=== PATIENT | male | born 1935 | race Caucasian/White ===

== ENCOUNTER 2020-01-28 09:43 | Inpatient (IN) | payer MEDICARE, OTHER ==
[2020-01-28] MEDS ORDERED: Ondansetron 4 MG/2 ML SDV IVPUSH PRN (15:05)
[2020-01-28] MEDS ORDERED: Ondansetron 4 MG Tab.DIS PO PRN (15:05)
--- NOTE | 2020-01-28 15:29 | PCM.HP ---
H&P History of Present Illness - General Date of Service: 01/28/20 Admit Problem/Dx: Admission Diagnosis/Problem Admission Diagnosis/Problem Hip fracture requiring operative repair Source of Information: Patient, Old Records History Limitations: Reports: No Limitations - History of Present Illness Initial Comments - Free Text/Narative: Patient is an 84-year-old male with medical history significant for hypertension , dyslipidemia, BPH, cancer, allergic rhinitis, and osteoarthritis who was admitted for closed left hip fracture. Patient underwent left total hip arthroplasty. 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 He underwent physical therapy and outpatient therapy and got therapy. They recommended swing bed placement to continue physical therapy due to patient living alone and having stairs to his residence. Today, patient reports that he is doing okay. He reports that his left lower extremity has been more swollen compared to baseline. Ultrasound of the lower extremity was obtained which came back negative. He reports that he was treated to stop taking his nifedipine. He reports intermittent constipation which is at baseline. Last bowel movement was this morning. Denies chest pain , shortness of breath, fevers, chills, nausea, vomiting, diarrhea, hematuria, dysuria, or any new symptoms. Left Hip Pain Score (Numeric/FACES): 2 - Related Data Allergies/Adverse Reactions: Allergies Allergy/AdvReac Type Severity Reaction Status Date / Time No Known Allergies Allergy Verified 01/28/20 15:08 Home Medications: Home Meds Aspirin [Ecotrin EC] 1 tab PO DAILY 07/22/14 [History] Cetirizine [ZyrTEC] 1 tab PO DAILY 07/22/14 [History] Simvastatin [Zocor] 10 mg PO BEDTIME 07/22/14 [History] Terazosin [Hytrin] 1 tab PO BID 07/22/14 [History] allopurinoL [Zyloprim] 1 tab PO DAILY@1730 07/22/14 [History] Cholecalciferol (Vitamin D3) [Vitamin D3] 25 mcg PO DAILY 01/28/20 [History] Enoxaparin Sodium 40 mg SQ DAILY MDD x 10 days from 01/27 post op 01/28/20 [ History] Furosemide 40 mg PO DAILY 01/28/20 [History] Past Medical History HEENT History: Reports: Cataract, Hard of Hearing, Impaired Vision Other HEENT History: bilateral cataracts surgery July 2014,February 2015 Cardiovascular History: Reports: Heart Failure, High Cholesterol, Hypertension Gastrointestinal History: Reports: GI Bleed Other Gastrointestinal History: hx of gi bleed in the . Genitourinary History: Reports: BPH Musculoskeletal History: Reports: None Neurological History: Reports: None Oncologic (Cancer) History: Reports: Other (See Below) Other Oncologic History: hx of skin cancer Dermatologic History: Reports: Other (See Below) Other Dermatologic History: hx of skin cancer, several lesions on lip,face,head all removed - Past Surgical History HEENT Surgical History: Reports: Adenoidectomy, Cataract Surgery, Tonsillectomy GI Surgical History: Reports: Appendectomy Male Surgical History: Reports: None Musculoskeletal Surgical History: Reports: Hip Replacement Dermatological Surgical History: Reports: Other (See Below) Social & Family History - Tobacco Use Smoking Status *Q: Never Smoker Second Hand Smoke Exposure: No - Caffeine Use Caffeine Use: Reports: Coffee Other Caffeine Use: 2 cups per day - Alcohol Use Days Per Week of Alcohol Use: 1 Number of Drinks Per Day: 1 Total Drinks Per Week: 1 - Recreational Drug Use Recreational Drug Use: No H&P Review of Systems - Review of Systems: Review Of Systems: Comprehensive ROS is negative, except as noted in HPI. Exam - Exam Exam: See Below - Vital Signs Weight: 163 lb 8 oz - Exam General: Alert, Oriented, Cooperative HEENT: Conjunctiva Clear, Hearing Intact Neck: Supple, Trachea Midline, Carotid Bruit Lungs: Clear to Auscultation Cardiovascular: Regular Rate, Regular Rhythm, Normal S1, Normal S2 GI/Abdominal Exam: Normal Bowel Sounds, Soft, Non-Tender, No Distention Extremities: Pedal Edema (Left > right), Other (Left hip surgical site, c/d/i) Skin: Warm, Dry, Intact Neuro Extensive - Mental Status: Alert, Oriented x3, Normal Mood/Affect Psychiatric: Alert, Normal Affect, Normal Mood - Problem List (1) Bilateral edema of lower extremity SNOMED Code(s): 007137804, 50777648, 890192614 ICD Code: R60.0 - LOCALIZED EDEMA Status: Acute Current Visit: Yes (2) Fracture of left hip requiring operative repair SNOMED Code(s): 892687129 ICD Code: S72.002A - FRACTURE OF UNSP PART OF NECK OF LEFT FEMUR, INIT Status: Acute Current Visit: Yes (3) Hypertension, essential SNOMED Code(s): 39183316 ICD Code: I10 - ESSENTIAL (PRIMARY) HYPERTENSION Status: Acute Current Visit: Yes (4) Hyperlipidemia SNOMED Code(s): 43671620 ICD Code: E78.5 - HYPERLIPIDEMIA, UNSPECIFIED Status: Acute Current Visit : Yes (5) Vitamin D deficiency SNOMED Code(s): 91955326 ICD Code: E55.9 - VITAMIN D DEFICIENCY, UNSPECIFIED Status: Acute Current Visit: Yes (6) Gout SNOMED Code(s): 31898341 ICD Code: M10.9 - GOUT, UNSPECIFIED Status: Acute Current Visit: Yes Problem List Initiated/Reviewed/Updated: Yes Orders Last 24hrs: Active Orders 24 hr Category Date Time Status Patient Status [ADT] Routine ADT 01/28/20 15:05 Ordered Oxygen Therapy [RC] PRN Care 01/28/20 15:05 Ordered Up With Assistance [RC] ASDIRECTED Care 01/28/20 15:05 Ordered VTE/DVT Education [RC] PER UNIT ROUTINE Care 01/28/20 15:05 Ordered Vital Signs [RC] Q4H Care 01/28/20 15:05 Ordered OT Evaluation and Treatment [CONS] Routine Cons 01/28/20 15:05 Ordered PT Evaluation and Treatment [CONS] Routine Cons 01/28/20 15:05 Ordered 2 Gram Sodium Diet [DIET] Diet 01/28/20 Dinner Ordered BASIC METABOLIC PANEL,BMP [CHEM] AM Lab 01/29/20 05:11 Ordered MAGNESIUM [CHEM] AM Lab 01/29/20 05:11 Ordered Acetaminophen [Tylenol] Med 01/28/20 15:05 Ordered 650 mg PO Q6H PRN Aspirin [Halfprin] Med 01/29/20 09:00 Ordered 81 mg PO DAILY Cetirizine [ZyrTEC] Med 01/29/20 09:00 Ordered 1 tab PO DAILY Cholecalciferol (Vitamin D3) [Vitamin D3] Med 01/29/20 09:00 Ordered 25 mcg PO DAILY Enoxaparin [Lovenox] Med 01/29/20 09:00 Ordered 40 mg SUBCUT DAILY Furosemide [Lasix] Med 01/29/20 09:00 Ordered 40 mg PO DAILY Ondansetron [Zofran ODT] Med 01/28/20 15:05 Ordered 4 mg PO Q6H PRN Ondansetron [Zofran] Med 01/28/20 15:05 Ordered 4 mg IVPUSH Q6H PRN Simvastatin [Zocor] Med 01/28/20 21:00 Ordered 10 mg PO BEDTIME Terazosin [Hytrin] Med 01/28/20 21:00 Ordered 5 mg PO BID allopurinoL [Zyloprim] Med 01/28/20 17:30 Ordered 100 mg PO DAILY@1730 Resuscitation Status Routine Resus Stat 01/28/20 15:05 Ordered Medication Orders Acetaminophen (Tylenol) 650 mg PO Q6H PRN PRN Reason: Pain (Mild 1-3)/fever Allopurinol (Zyloprim) 100 mg PO DAILY@1730 [facility] Aspirin (Halfprin) 81 mg PO DAILY [facility] Cholecalciferol (Vitamin D3) 25 mcg PO DAILY [facility] Enoxaparin Sodium (Lovenox) 40 mg SUBCUT DAILY [facility] Furosemide (Lasix) 40 mg PO DAILY [facility] Non-Formulary Medication (Cetirizine [Zyrtec]) 1 tab PO DAILY [facility] Non-Formulary Medication (Simvastatin [Zocor]) 10 mg PO BEDTIME [facility] Ondansetron HCl (Zofran Odt) 4 mg PO Q6H PRN PRN Reason: nausea, able to take PO Ondansetron HCl (Zofran) 4 mg IVPUSH Q6H PRN PRN Reason: Nausea/Vomiting Terazosin HCl (Hytrin) 5 mg PO BID [facility] Assessment/Plan Comment:: #Left hip fracture status post left CECIL: PT/OT #Lateral lower extremity edema: Likely due to fluid overload from IV fluids and hospital stay. Ultrasound of the lower extremity negative for DVT Nifedipine discontinued Continue oral Lasix Elevate lower extremities when in bed or when seated. #Hypertension: Blood pressures at goal Continue home meds Nifedipine discontinued #Hyperlipidemia Continue statin Vitamin D deficiency Continue vitamin D supplementation #Gout Continue allopurinol DVT prophylaxis: Lovenox GI prophylaxis: Cardiac diet CODE STATUS: DNR/DNI. Patient preference
[2020-01-28] MEDS: Allopurinol 100 MG Tab PO SCH (16:55)
[2020-01-28] MEDS: Simvastatin 10 MG Tab PO SCH (21:12)
[2020-01-28] MEDS: Terazosin 5 MG Cap PO SCH (21:13)
[2020-01-29 06:22] LABS: ANION GAP 8.3 mEq/L (7-13); CHLORIDE,CL 103 mmol/L (98-107); SODIUM,NA 141 mmol/L (136-145)
[2020-01-29] MEDS ORDERED: CETIRIZINE PO SCH (09:00)
[2020-01-29] MEDS: Cholecalciferol (Vitamin D3) 25 MCG Tab PO SCH (09:22)
[2020-01-29] MEDS: Terazosin 5 MG Cap PO SCH ×2 (09:22→20:29)
[2020-01-29] MEDS: Aspirin 81 MG Tab.EC PO SCH (09:22)
[2020-01-29] MEDS: Loratadine 10 MG Tab PO SCH (09:22)
[2020-01-29] MEDS: Enoxaparin 40 MG/0.4 ML Syringe SUBCUT SCH (09:22)
[2020-01-29] MEDS: Furosemide 40 MG Tab PO SCH (09:22)
[2020-01-29] MEDS ORDERED: Potassium Chloride 10 MEQ Tab.ER PO ONE (10:11)
[2020-01-29] MEDS: Allopurinol 100 MG Tab PO SCH (17:43)
[2020-01-29] MEDS: Simvastatin 10 MG Tab PO SCH (20:29)
[2020-01-30] MEDS: Acetaminophen 325 MG Tab PO PRN ×2 (02:03→11:43)
[2020-01-30] MEDS: Terazosin 5 MG Cap PO SCH ×2 (10:26→21:15)
[2020-01-30] MEDS: Cholecalciferol (Vitamin D3) 25 MCG Tab PO SCH (10:27)
[2020-01-30] MEDS: Potassium Chloride 10 MEQ Tab.ER PO SCH (10:27)
[2020-01-30] MEDS: Aspirin 81 MG Tab.EC PO SCH (10:28)
[2020-01-30] MEDS: Loratadine 10 MG Tab PO SCH (10:29)
[2020-01-30] MEDS: Furosemide 40 MG Tab PO SCH (10:29)
[2020-01-30] MEDS: Enoxaparin 40 MG/0.4 ML Syringe SUBCUT SCH (10:30)
[2020-01-30] MEDS: Allopurinol 100 MG Tab PO SCH (17:53)
[2020-01-30] MEDS: Simvastatin 10 MG Tab PO SCH (21:19)
[2020-01-31] MEDS: Acetaminophen 325 MG Tab PO PRN ×3 (02:43→20:30)
[2020-01-31] MEDS: Aspirin 81 MG Tab.EC PO SCH (08:31)
[2020-01-31] MEDS: Furosemide 40 MG Tab PO SCH (08:31)
[2020-01-31] MEDS: Loratadine 10 MG Tab PO SCH (08:31)
[2020-01-31] MEDS: Potassium Chloride 10 MEQ Tab.ER PO SCH (08:32)
[2020-01-31] MEDS: Cholecalciferol (Vitamin D3) 25 MCG Tab PO SCH (08:32)
[2020-01-31] MEDS: Terazosin 5 MG Cap PO SCH ×2 (08:33→22:38)
[2020-01-31] MEDS: Enoxaparin 40 MG/0.4 ML Syringe SUBCUT SCH (08:34)
[2020-01-31] MEDS: Allopurinol 100 MG Tab PO SCH (17:47)
[2020-01-31] MEDS: Simvastatin 10 MG Tab PO SCH (22:38)
[2020-02-01] MEDS: Potassium Chloride 10 MEQ Tab.ER PO SCH (07:47)
[2020-02-01] MEDS: Furosemide 40 MG Tab PO SCH (08:49)
[2020-02-01] MEDS: Aspirin 81 MG Tab.EC PO SCH (08:50)
[2020-02-01] MEDS: Cholecalciferol (Vitamin D3) 25 MCG Tab PO SCH (08:50)
[2020-02-01] MEDS: Terazosin 5 MG Cap PO SCH ×2 (08:50→21:22)
[2020-02-01] MEDS: Acetaminophen 325 MG Tab PO PRN ×2 (08:51→16:20)
[2020-02-01] MEDS: Loratadine 10 MG Tab PO SCH (08:51)
[2020-02-01] MEDS: Enoxaparin 40 MG/0.4 ML Syringe SUBCUT SCH (08:51)
[2020-02-01] MEDS: Allopurinol 100 MG Tab PO SCH (17:21)
[2020-02-01] MEDS: Simvastatin 10 MG Tab PO SCH (21:22)
[2020-02-02] MEDS: Acetaminophen 325 MG Tab PO PRN ×4 (01:34→20:49)
[2020-02-02] MEDS: Loratadine 10 MG Tab PO SCH (08:12)
[2020-02-02] MEDS: Potassium Chloride 10 MEQ Tab.ER PO SCH (08:12)
[2020-02-02] MEDS: Cholecalciferol (Vitamin D3) 25 MCG Tab PO SCH (08:12)
[2020-02-02] MEDS: Terazosin 5 MG Cap PO SCH ×2 (08:13→20:48)
[2020-02-02] MEDS: Aspirin 81 MG Tab.EC PO SCH (08:14)
[2020-02-02] MEDS: Furosemide 40 MG Tab PO SCH (08:14)
[2020-02-02] MEDS: Enoxaparin 40 MG/0.4 ML Syringe SUBCUT SCH (08:16)
[2020-02-02] MEDS: Allopurinol 100 MG Tab PO SCH (17:57)
[2020-02-02] MEDS: Simvastatin 10 MG Tab PO SCH (20:48)
[2020-02-03] MEDS: Acetaminophen 325 MG Tab PO PRN ×3 (03:07→17:08)
[2020-02-03 06:29] LABS: CHLORIDE,CL 105 mmol/L (98-107); SODIUM,NA 143 mmol/L (136-145)
[2020-02-03] MEDS: Aspirin 81 MG Tab.EC PO SCH (08:20)
[2020-02-03] MEDS: Loratadine 10 MG Tab PO SCH (08:20)
[2020-02-03] MEDS: Potassium Chloride 10 MEQ Tab.ER PO SCH (08:20)
[2020-02-03] MEDS: Cholecalciferol (Vitamin D3) 25 MCG Tab PO SCH (08:21)
[2020-02-03] MEDS: Furosemide 40 MG Tab PO SCH (08:21)
[2020-02-03] MEDS: Terazosin 5 MG Cap PO SCH ×2 (08:21→20:35)
[2020-02-03] MEDS: Enoxaparin 40 MG/0.4 ML Syringe SUBCUT SCH (08:22)
--- NOTE | 2020-02-03 11:08 | PCM.PN ---
- General Info Date of Service: 02/03/20 Subjective Update: General feeling well. Has episodes of left hip area pain. Associated with contracture. Better with pain medication Has been working well with physical therapy No shortness of breath, no chest pain Has mild to moderate bilateral lower extremity edema, more pronounced on the left side Has been using compression stocking Functional Status: Reports: Pain Controlled - Review of Systems General: Denies: Fever Pulmonary: Denies: Shortness of Breath Cardiovascular: Reports: Edema. Denies: Chest Pain Gastrointestinal: Denies: Abdominal Pain Genitourinary: Denies: Dysuria Neurological: Reports: Difficulty Walking - Patient Data Vitals - Most Recent: Last Vital Signs Temp 97.9 F 02/03/20 07:55 Pulse 63 02/03/20 07:55 Resp 16 02/03/20 07:55 BP 160/92 H 02/03/20 08:21 Pulse Ox 97 02/03/20 07:55 Weight - Most Recent: 161 lb 6 oz I&O - Last 24 Hours: Intake & Output 02/02/20 02/03/20 02/03/20 22:59 06:59 14:59 Intake Total 790 Balance 790 Lab Results Last 24 Hours: Laboratory Results - last 24 hr 02/03/20 02/03/20 Range/Units 05:40 05:40 WBC 7.0 (5.0-10.0) 10^3/uL RBC 3.03 L (4.6-6.2) 10^6/uL Hgb 9.5 L (14.0-18.0) g/dL Hct 29.0 L (40.0-54.0) % MCV 95.7 (80-100) fL MCH 31.4 (27.0-34.0) pg MCHC 32.8 L (33.0-35.0) g/dL Plt Count 302 (150-450) 10^3/uL Neut % (Auto) 78.0 H (42.2-75.2) % Lymph % (Auto) 12.9 L (20.5-50.1) % Frio % (Auto) 7.7 (2-8) % Eos % (Auto) 1.1 (1.0-3.0) % Baso % (Auto) 0.3 (0.0-1.0) % Sodium 143 (136-145) mmol/L Potassium 4.0 (3.5-5.1) mmol/L Chloride 105 (98-107) mmol/L Carbon Dioxide 34 H (21-32) mmol/L Anion Gap 8.0 (7-13) mEq/L BUN 17 (7-18) mg/dL Creatinine 0.99 (0.70-1.30) mg/dL Est Cr Clr Drug Dosing 57.35 mL/min Estimated GFR (MDRD) > 60 Glucose 86 (74-99) mg/dL Calcium 8.2 L (8.5-10.1) mg/dL Med Orders - Current: Current Medications Acetaminophen (Tylenol) 650 mg PO Q6H PRN PRN Reason: Pain (Mild 1-3)/fever Last Admin: 02/03/20 09:32 Dose: 650 mg Allopurinol (Zyloprim) 100 mg PO DAILY@1730 [facility] Last Admin: 02/02/20 17:57 Dose: 100 mg Aspirin (Halfprin) 81 mg PO DAILY [facility] Last Admin: 02/03/20 08:20 Dose: 81 mg Cholecalciferol (Vitamin D3) 25 mcg PO DAILY [facility] Last Admin: 02/03/20 08:21 Dose: 25 mcg Enoxaparin Sodium (Lovenox) 40 mg SUBCUT DAILY [facility] Last Admin: 02/03/20 08:22 Dose: 40 mg Furosemide (Lasix) 40 mg PO DAILY [facility] Last Admin: 02/03/20 08:21 Dose: 40 mg Lisinopril (Prinivil) 5 mg PO DAILY [facility] Loratadine (Claritin) 10 mg PO DAILY [facility] Last Admin: 02/03/20 08:20 Dose: 10 mg Ondansetron HCl (Zofran Odt) 4 mg PO Q6H PRN PRN Reason: nausea, able to take PO Ondansetron HCl (Zofran) 4 mg IVPUSH Q6H PRN PRN Reason: Nausea/Vomiting Potassium Chloride (Klor-Con 10) 20 meq PO WITHBREAKFAST [facility] Last Admin: 02/03/20 08:20 Dose: 20 meq Senna/Docusate Sodium (Senna Plus) 1 tab PO BID [facility] Last Admin: 02/03/20 08:21 Dose: 1 tab Simvastatin (Zocor) 10 mg PO BEDTIME [facility] Last Admin: 05/31/20 20:48 Dose: 10 mg Terazosin HCl (Hytrin) 5 mg PO BID [facility] Last Admin: 02/03/20 08:21 Dose: 5 mg Discontinued Medications Potassium Chloride (Klor-Con 10) 40 meq PO ONETIME ONE Stop: 01/29/20 10:12 Last Admin: 01/29/20 12:00 Dose: 40 meq - Exam General: Alert, Oriented Neck: Supple Lungs: Clear to Auscultation, Normal Respiratory Effort Cardiovascular: Regular Rate, Regular Rhythm GI/Abdominal Exam: Normal Bowel Sounds, Soft, Non-Tender Extremities: Pedal Edema (2+ left side, 1+ right side) Skin: Warm, Dry Neurological: No New Focal Deficit Psy/Mental Status: Alert, Normal Affect, Normal Mood Sepsis Event Note - Evaluation Sepsis Screening Result: No Definite Risk - Focused Exam Vital Signs: Vital Signs Temp Pulse Resp BP BP Pulse Ox 02/03/20 08:21 160/92 H 02/03/20 07:55 97.9 F 63 16 160/92 H 97 Date Exam was Performed: 02/03/20 Time Exam was Performed: 11:04 - Problem List & Annotations (1) Bilateral edema of lower extremity SNOMED Code(s): 142735247, 89998384, 637061499 Code(s): R60.0 - LOCALIZED EDEMA Status: Acute Current Visit: Yes (2) Fracture of left hip requiring operative repair SNOMED Code(s): 267267596 Code(s): S72.002A - FRACTURE OF UNSP PART OF NECK OF LEFT FEMUR, INIT Status: Acute Current Visit: Yes (3) Hypertension, essential SNOMED Code(s): 41382388 Code(s): I10 - ESSENTIAL (PRIMARY) HYPERTENSION Status: Acute Current Visit: Yes - Problem List Review Problem List Initiated/Reviewed/Updated: Yes - My Orders Last 24 Hours: My Active Orders 02/02/20 11:19 Antiembolic Devices [RC] PER UNIT ROUTINE STEVEN Hose [Antiembolic Hose] [OM.PC] Routine 02/03/20 11:15 lisinopriL [Prinivil] 5 mg PO DAILY - Plan Plan:: #Left hip fracture status post left CECIL: Continue with PT/OT #Lateral lower extremity edema Ultrasound of the lower extremity negative for DVT Nifedipine discontinued Continue oral Lasix Elevate lower extremities when in bed or when seated. Continue to use compression stocking #Hypertension: Uncontrolled Nifedipine discontinued *Lisinopril Continue Lasix #Hyperlipidemia Continue statin # Hypokalemia Resolved Monitor periodically with diuretics #Vitamin D deficiency Continue vitamin D supplementation #Gout Continue allopurinol DVT prophylaxis: Lovenox GI prophylaxis: Cardiac diet CODE STATUS: DNR/DNI. per patient's preference
[2020-02-03] MEDS: Lisinopril 5 MG Tab PO SCH (12:12)
[2020-02-03] MEDS: Allopurinol 100 MG Tab PO SCH (17:11)
[2020-02-03] MEDS: Simvastatin 10 MG Tab PO SCH (20:35)
[2020-02-04] MEDS: Lisinopril 5 MG Tab PO SCH (09:06)
[2020-02-04] MEDS: Aspirin 81 MG Tab.EC PO SCH (09:07)
[2020-02-04] MEDS: Furosemide 40 MG Tab PO SCH (09:07)
[2020-02-04] MEDS: Terazosin 5 MG Cap PO SCH ×2 (09:07→20:17)
[2020-02-04] MEDS: Loratadine 10 MG Tab PO SCH (09:07)
[2020-02-04] MEDS: Potassium Chloride 10 MEQ Tab.ER PO SCH (09:07)
[2020-02-04] MEDS: Cholecalciferol (Vitamin D3) 25 MCG Tab PO SCH (09:07)
[2020-02-04] MEDS: Enoxaparin 40 MG/0.4 ML Syringe SUBCUT SCH (09:08)
[2020-02-04] MEDS: Acetaminophen 325 MG Tab PO PRN ×2 (09:13→20:22)
[2020-02-04] MEDS: Allopurinol 100 MG Tab PO SCH (17:03)
[2020-02-04] MEDS: Simvastatin 10 MG Tab PO SCH (20:18)
[2020-02-05] MEDS: Terazosin 5 MG Cap PO SCH ×2 (09:12→22:13)
[2020-02-05] MEDS: Lisinopril 5 MG Tab PO SCH (09:13)
[2020-02-05] MEDS: Furosemide 40 MG Tab PO SCH (09:13)
[2020-02-05] MEDS: Aspirin 81 MG Tab.EC PO SCH (09:13)
[2020-02-05] MEDS: Potassium Chloride 10 MEQ Tab.ER PO SCH (09:13)
[2020-02-05] MEDS: Cholecalciferol (Vitamin D3) 25 MCG Tab PO SCH (09:13)
[2020-02-05] MEDS: Loratadine 10 MG Tab PO SCH (09:13)
[2020-02-05] MEDS: Enoxaparin 40 MG/0.4 ML Syringe SUBCUT SCH (09:15)
[2020-02-05] MEDS: Acetaminophen 325 MG Tab PO PRN ×2 (09:20→22:13)
[2020-02-05] MEDS: Allopurinol 100 MG Tab PO SCH (17:39)
[2020-02-05] MEDS: Simvastatin 10 MG Tab PO SCH (22:13)
[2020-02-06] MEDS: Acetaminophen 325 MG Tab PO PRN (05:27)
[2020-02-06 08:25] VITALS: BP 126/63; PULSE 69
[2020-02-06] MEDS: Potassium Chloride 10 MEQ Tab.ER PO SCH (08:26)
[2020-02-06] MEDS: Loratadine 10 MG Tab PO SCH (08:26)
[2020-02-06] MEDS: Enoxaparin 40 MG/0.4 ML Syringe SUBCUT SCH (08:26)
[2020-02-06] MEDS: Terazosin 5 MG Cap PO SCH (08:26)
[2020-02-06] MEDS: Cholecalciferol (Vitamin D3) 25 MCG Tab PO SCH (08:27)
[2020-02-06] MEDS: Furosemide 40 MG Tab PO SCH (08:27)
[2020-02-06] MEDS: Lisinopril 5 MG Tab PO SCH (08:27)
[2020-02-06] MEDS: Aspirin 81 MG Tab.EC PO SCH (08:27)
--- NOTE | 2020-02-06 11:56 | PCM.DCSUM1 ---
Discharge Summary - Hospital Course Free Text/Narrative:: Admitted to swing bed following left total hip arthroplasty #Left hip fracture status post left CECIL: did well with PT/OT #Left lower extremity edema Ultrasound of the lower extremity negative for DVT Nifedipine discontinued Continue oral Lasix Elevate lower extremities when in bed or when seated. Continue to use compression stocking #Hypertension: Uncontrolled Nifedipine discontinued added Lisinopril Continue Lasix #Hyperlipidemia Continue statin # Hypokalemia Resolved Monitor periodically with diuretics and potassium replacement #Vitamin D deficiency Continue vitamin D supplementation #Gout Continue allopurinol Diagnosis: Stroke: No - Discharge Data Discharge Date: 02/06/20 Discharge Disposition: Home, Self-Care 01 Condition: Good - Referral to Home Health Primary Care Physician: PCP None - Discharge Diagnosis/Problem(s) (1) Bilateral edema of lower extremity SNOMED Code(s): 605468446, 07967946, 716716773 ICD Code: R60.0 - LOCALIZED EDEMA Status: Acute Current Visit: Yes (2) Fracture of left hip requiring operative repair SNOMED Code(s): 377488832 ICD Code: S72.002A - FRACTURE OF UNSP PART OF NECK OF LEFT FEMUR, INIT Status: Acute Current Visit: Yes (3) Hypertension, essential SNOMED Code(s): 76353652 ICD Code: I10 - ESSENTIAL (PRIMARY) HYPERTENSION Status: Acute Current Visit: Yes - Patient Summary/Data Consults: Consultations 01/28/20 15:05 OT Evaluation and Treatment [CONS] Routine PT Evaluation and Treatment [CONS] Routine - Patient Instructions Diet: Heart Healthy Diet Activity: As Tolerated - Discharge Plan Prescriptions/Med Rec: lisinopriL [Prinivil] 5 mg PO DAILY #30 tablet Potassium Chloride [Klor-Con 10] 20 meq PO WITHBREAKFAST #30 tab.er Home Medications: Home Meds Aspirin [Ecotrin EC] 81 mg PO DAILY 07/22/14 [History] Cetirizine [ZyrTEC] 10 mg PO DAILY 07/22/14 [History] Simvastatin [Zocor] 10 mg PO BEDTIME 07/22/14 [History] Terazosin [Hytrin] 5 mg PO BID 07/22/14 [History] allopurinoL [Zyloprim] 100 mg PO DAILY@1730 07/22/14 [History] Cholecalciferol (Vitamin D3) [Vitamin D3] 25 mcg PO DAILY 01/28/20 [History] Furosemide 40 mg PO DAILY 01/28/20 [History] Potassium Chloride [Klor-Con 10] 20 meq PO WITHBREAKFAST #30 tab.er 02/06/20 [Rx ] lisinopriL [Prinivil] 5 mg PO DAILY #30 tablet 02/06/20 [Rx] Oxygen Therapy Mode: Room Air Patient Handouts: Total Hip Replacement, [id number] - Discharge Summary/Plan Comment DC Time >30 min.: No - General Info Date of Service: 02/06/20 - Review of Systems General: Denies: Fever Pulmonary: Denies: Shortness of Breath Cardiovascular: Denies: Chest Pain Neurological: Denies: Confusion Psychiatric: Reports: Anxiety - Patient Data Vitals - Most Recent: Last Vital Signs Temp 97.7 F 02/06/20 08:00 Pulse 69 02/06/20 08:00 Resp 18 02/06/20 08:00 BP 126/63 02/06/20 08:27 Pulse Ox 99 02/06/20 08:00 Weight - Most Recent: 158 lb 9.6 oz I&O - Last 24 hours: Intake & Output 02/05/20 02/06/20 02/06/20 22:59 06:59 14:59 Intake Total 360 Balance 360 Med Orders - Current: Current Medications Acetaminophen (Tylenol) 650 mg PO Q6H PRN PRN Reason: Pain (Mild 1-3)/fever Last Admin: 02/06/20 05:27 Dose: 650 mg Allopurinol (Zyloprim) 100 mg PO DAILY@1730 [facility] Last Admin: 02/05/20 17:39 Dose: 100 mg Aspirin (Halfprin) 81 mg PO DAILY [facility] Last Admin: 02/06/20 08:27 Dose: 81 mg Cholecalciferol (Vitamin D3) 25 mcg PO DAILY [facility] Last Admin: 02/06/20 08:27 Dose: 25 mcg Enoxaparin Sodium (Lovenox) 40 mg SUBCUT DAILY [facility] Last Admin: 02/06/20 08:26 Dose: 40 mg Furosemide (Lasix) 40 mg PO DAILY [facility] Last Admin: 02/06/20 08:27 Dose: 40 mg Lisinopril (Prinivil) 5 mg PO DAILY [facility] Last Admin: 02/06/20 08:27 Dose: 5 mg Loratadine (Claritin) 10 mg PO DAILY [facility] Last Admin: 02/06/20 08:26 Dose: 10 mg Ondansetron HCl (Zofran Odt) 4 mg PO Q6H PRN PRN Reason: nausea, able to take PO Ondansetron HCl (Zofran) 4 mg IVPUSH Q6H PRN PRN Reason: Nausea/Vomiting Potassium Chloride (Klor-Con 10) 20 meq PO WITHBREAKFAST [facility] Last Admin: 02/06/20 08:26 Dose: 20 meq Senna/Docusate Sodium (Senna Plus) 1 tab PO BID [facility] Last Admin: 02/06/20 08:26 Dose: 1 tab Simvastatin (Zocor) 10 mg PO BEDTIME [facility] Last Admin: 02/05/20 22:13 Dose: 10 mg Terazosin HCl (Hytrin) 5 mg PO BID [facility] Last Admin: 02/06/20 08:26 Dose: 5 mg Discontinued Medications Potassium Chloride (Klor-Con 10) 40 meq PO ONETIME ONE Stop: 01/29/20 10:12 Last Admin: 01/29/20 12:00 Dose: 40 meq - Exam General: Reports: Alert, Oriented Lungs: Reports: Clear to Auscultation, Normal Respiratory Effort Cardiovascular: Reports: Regular Rate, Regular Rhythm Extremities: Pedal Edema (trace b/l ) Skin: Reports: Warm Neurological: Reports: No New Focal Deficit Psy/Mental Status: Reports: Alert, Normal Affect, Normal Mood
== END 2020-02-06 13:35 | disposition home or self-care (01) | DRG 561 ==
LOC: DL.MS 13:50 → UNDOADMIN 13:50 → DL.MS 15:05
PROVIDERS: ADMIT Internal Medicine; ATTEND Internal Medicine
DX: S72.002D Fracture of unspecified part of neck of left femur, subsequent encounter for closed fracture with routine healing (principal); R60.0 Localized edema; E78.5 Hyperlipidemia, unspecified; E87.6 Hypokalemia; E55.9 Vitamin D deficiency, unspecified; I11.0 Hypertensive heart disease with heart failure; I50.9 Heart failure, unspecified; E78.00 Pure hypercholesterolemia, unspecified; Z66 Do not resuscitate; M10.9 Gout, unspecified; N40.0 Benign prostatic hyperplasia without lower urinary tract symptoms; K59.00 Constipation, unspecified; Z79.82 Long term (current) use of aspirin; Z79.899 Other long term (current) drug therapy; Z98.41 Cataract extraction status, right eye; Z98.42 Cataract extraction status, left eye; Z85.828 Personal history of other malignant neoplasm of skin; Z28.82 Immunization not carried out because of caregiver refusal
CPT/HCPCS: 36415; 80048; 83735; 85025; 97110-GO; 97110-GP; 97116-GP; 97161-GP; 97165-GO; 97530-GO; 97535-GO; A9270-GY; J1650

== ENCOUNTER 2021-08-27 19:38 | Emergency (ER) | payer MEDICARE, OTHER ==
[2021-08-27 20:03] VITALS: BP 208/98; PULSE 86
--- NOTE | 2021-08-27 20:24 | EDM.PDOC ---
ED HPI GENERAL MEDICAL PROBLEM - General Chief Complaint: Upper Extremity Injury/Pain Stated Complaint: FELL AND HAS SOME SPOTS ON ARM THAT ARE BLEEDING Time Seen by Provider: 08/27/21 20:05 Source of Information: Reports: Patient History Limitations: Reports: No Limitations - History of Present Illness INITIAL COMMENTS - FREE TEXT/NARRATIVE: ED ambulatory, getting up from chair, lost balance from being stiff bumped against dresser with left forarm, skin tears, no bone pain, did not fall, did not hit head. Hx easy bruising, fragile skin. On baby aspirin. Left Arm Pain Score (Numeric/FACES): 2 - Related Data Allergies Allergy/AdvReac Type Severity Reaction Status Date / Time No Known Allergies Allergy Verified 08/27/21 20:03 Home Meds: Home Meds Aspirin [Ecotrin EC] 81 mg PO DAILY 07/22/14 [History] Cetirizine [ZyrTEC] 10 mg PO DAILY 07/22/14 [History] Simvastatin [Zocor] 10 mg PO BEDTIME 07/22/14 [History] Terazosin [Hytrin] 5 mg PO BID 07/22/14 [History] allopurinoL [Zyloprim] 100 mg PO DAILY@1730 07/22/14 [History] Cholecalciferol (Vitamin D3) [Vitamin D3] 25 mcg PO DAILY 01/28/20 [History] Furosemide 40 mg PO DAILY 01/28/20 [History] Potassium Chloride [Klor-Con 10] 20 meq PO WITHBREAKFAST #30 tab.er 02/06/20 [Rx] lisinopriL [Prinivil] 5 mg PO DAILY #30 tablet 02/06/20 [Rx] Past Medical History HEENT History: Reports: Cataract, Hard of Hearing, Impaired Vision Other HEENT History: bilateral cataracts surgery July 2014,February 2015 Cardiovascular History: Reports: Heart Failure, High Cholesterol, Hypertension Gastrointestinal History: Reports: GI Bleed Other Gastrointestinal History: hx of gi bleed in the . Genitourinary History: Reports: BPH Musculoskeletal History: Reports: None Neurological History: Reports: None Endocrine/Metabolic History: Reports: None Oncologic (Cancer) History: Reports: Other (See Below) Other Oncologic History: hx of skin cancer Dermatologic History: Reports: Other (See Below) Other Dermatologic History: hx of skin cancer, several lesions on lip,face,head all removed - Past Surgical History HEENT Surgical History: Reports: Adenoidectomy, Cataract Surgery, Tonsillectomy GI Surgical History: Reports: Appendectomy Male Surgical History: Reports: None Musculoskeletal Surgical History: Reports: Hip Replacement Dermatological Surgical History: Reports: Other (See Below) Social & Family History - Tobacco Use Tobacco Use Status *Q: Never Tobacco User - Caffeine Use Caffeine Use: Reports: Coffee, Tea Other Caffeine Use: 2 cups per day - Recreational Drug Use Recreational Drug Use: No Review of Systems - Review of Systems Review Of Systems: Comprehensive ROS is negative, except as noted in HPI. ED EXAM, GENERAL - Physical Exam Exam: See Below Exam Limited By: No Limitations General Appearance: Alert, No Apparent Distress Eye Exam: Bilateral Eye: EOMI Ears: Normal External Exam, Hearing Grossly Normal Nose: Normal Inspection Throat/Mouth: Normal Inspection Head: Atraumatic, Normocephalic Neck: Normal Inspection Respiratory/Chest: No Respiratory Distress, Lungs Clear, Normal Breath Sounds Cardiovascular: Regular Rate, Rhythm GI/Abdominal: Normal Bowel Sounds, Soft Extremities: Normal Range of Motion, Other (skin tear left outer upper srist 2cm, upper forearm 2 cm skin tear) Neurological: Alert, Oriented Skin Exam: Warm, Dry, Intact, Ecchymosis (left lateral forearm) Course - Vital Signs Last Recorded V/S: Last Vital Signs Temp 98.6 F 08/27/21 20:01 Pulse 86 08/27/21 20:01 Resp 18 08/27/21 20:01 BP 208/98 H 08/27/21 20:01 Pulse Ox 97 08/27/21 20:01 - Orders/Labs/Meds Meds: Medications Discontinued Medications Generic Name Dose Route Start Last Admin Trade Name Anastacia PRN Reason Stop Dose Admin Mupirocin Confirm 08/27/21 20:52 Mupirocin Oint 22 Gm Tube Administered 08/27/21 20:53 Dose 22 gm .ROUTE .STK-MED ONE Departure - Departure Time of Disposition: 20:24 Disposition: Home, Self-Care 01 Condition: Good Clinical Impression: Skin tear of left upper extremity - Discharge Information *PRESCRIPTION DRUG MONITORING PROGRAM REVIEWED*: No *COPY OF PRESCRIPTION DRUG MONITORING REPORT IN PATIENT VIOLA: No Instructions: Skin Tear, [id number] Forms: ED Department Discharge Additional Instructions: tylenol 500mg every 4 hours as needed for discomfort wash wounds gently with soap and water, moisten dressing if stuck to wound and let soak before pulling off change dressing twice daily non adherent dressing and mupirocin ointment clinic recheck early next week, sooner if red swollen pus type drainage Sepsis Event Note (ED) - Evaluation Sepsis Screening Result: No Definite Risk - Focused Exam Vital Signs: Vital Signs Temp Pulse Resp BP Pulse Ox 08/27/21 20:01 98.6 F 86 18 208/98 H 97
[2021-08-27] MEDS ORDERED: Mupirocin Oint 22 GM Tube ONE (20:52)
== END 2021-08-27 20:44 | disposition home or self-care (01) ==
LOC: DL.ED 19:38
DX: S51.812A Laceration without foreign body of left forearm, initial encounter (principal); I11.0 Hypertensive heart disease with heart failure; I50.9 Heart failure, unspecified; E78.00 Pure hypercholesterolemia, unspecified; Z79.82 Long term (current) use of aspirin; Z79.899 Other long term (current) drug therapy; W22.8XXA Striking against or struck by other objects, initial encounter
CPT/HCPCS: 99283; A9270

== ENCOUNTER 2021-10-15 20:52 | Inpatient (IN) | payer MEDICARE, OTHER ==
[2021-10-15] MEDS ORDERED: Acetaminophen 500 MG Tab PO ONE (20:59)
[2021-10-15] MEDS: Sodium Chloride 0.9% 1,000 ML IV ONE ×4 (21:05→23:18)
[2021-10-15 21:35] LABS: ANION GAP 16.1 mEq/L (7-13)
[2021-10-15 21:51] LABS: CORONAVIRUS COVID-19 NAA NEGATIVE (NEGATIVE)
[2021-10-15] MEDS ORDERED: cefTRIAXone 2 GM in Sodium Chloride 0.9% 100 ML IV ONE (22:19)
[2021-10-15] MEDS ORDERED: Ondansetron 4 MG/2 ML SDV IVPUSH PRN (22:30)
[2021-10-15] MEDS ORDERED: Sodium Chloride 0.9% 250 ML IV SCH (22:45)
[2021-10-15] MEDS: Sodium Chloride 0.9% 1,000 ML IV SCH (23:26)
[2021-10-16] MEDS: Heparin Sodium 5,000 Units/ML Vial SUBCUT SCH ×3 (06:06→21:39)
[2021-10-16] MEDS: Sodium Chloride 0.9% 1,000 ML IV SCH (08:47)
[2021-10-16] MEDS: Terazosin 5 MG Cap PO SCH ×2 (08:48→21:38)
[2021-10-16] MEDS: Aspirin 81 MG Tab.EC PO SCH (08:48)
[2021-10-16 09:31] LABS: ANION GAP 12.8 mEq/L (7-13)
[2021-10-16] MEDS: Acetaminophen 325 MG Tab PO PRN ×2 (19:38→23:30)
[2021-10-16] MEDS: cefTRIAXone 2 GM in Sodium Chloride 0.9% 100 ML IV SCH (19:41)
[2021-10-17] MEDS: Acetaminophen 325 MG Tab PO PRN ×3 (04:04→18:20)
[2021-10-17] MEDS: Heparin Sodium 5,000 Units/ML Vial SUBCUT SCH ×3 (05:33→21:13)
[2021-10-17] MEDS: Aspirin 81 MG Tab.EC PO SCH (08:17)
[2021-10-17] MEDS: Terazosin 5 MG Cap PO SCH ×2 (08:19→20:16)
[2021-10-17 09:07] LABS: ANION GAP 10.7 mEq/L (7-13)
[2021-10-17] MEDS ORDERED: Furosemide 20 MG/2 ML VIAL IVPUSH ONE (09:22)
[2021-10-17] MEDS: Azithromycin 500 MG in Sodium Chloride 0.9% 250 ML IV SCH (10:03)
[2021-10-17] MEDS: cefTRIAXone 2 GM in Sodium Chloride 0.9% 100 ML IV SCH (20:14)
[2021-10-18] MEDS: Acetaminophen 325 MG Tab PO PRN ×2 (04:51→12:31)
[2021-10-18] MEDS: Heparin Sodium 5,000 Units/ML Vial SUBCUT SCH ×3 (05:50→21:44)
[2021-10-18 05:58] LABS: ANION GAP 9.8 mEq/L (7-13)
[2021-10-18] MEDS: Terazosin 5 MG Cap PO SCH ×2 (08:35→21:43)
[2021-10-18] MEDS: Aspirin 81 MG Tab.EC PO SCH (08:35)
[2021-10-18] MEDS ORDERED: Furosemide 20 MG/2 ML VIAL IVPUSH ONE (09:15)
[2021-10-18] MEDS: Azithromycin 500 MG in Sodium Chloride 0.9% 250 ML IV SCH (09:32)
[2021-10-18] MEDS ORDERED: Calcium Carbonate 500 MG Tab.Chew PO PRN (11:53)
[2021-10-18] MEDS: cefTRIAXone 2 GM in Sodium Chloride 0.9% 100 ML IV SCH (20:21)
[2021-10-19] MEDS: Heparin Sodium 5,000 Units/ML Vial SUBCUT SCH ×3 (05:53→21:11)
[2021-10-19 07:00] LABS: ANION GAP 11.8 mEq/L (7-13)
[2021-10-19] MEDS: Aspirin 81 MG Tab.EC PO SCH (08:27)
[2021-10-19] MEDS: Terazosin 5 MG Cap PO SCH ×2 (08:27→21:11)
[2021-10-19] MEDS: Azithromycin 500 MG in Sodium Chloride 0.9% 250 ML IV SCH (10:14)
[2021-10-19] MEDS: Allopurinol 100 MG Tab PO SCH (17:47)
[2021-10-19] MEDS: Acetaminophen 500 MG Tab PO SCH (21:10)
[2021-10-19] MEDS: cefTRIAXone 2 GM in Sodium Chloride 0.9% 100 ML IV SCH (21:11)
[2021-10-20] MEDS: Heparin Sodium 5,000 Units/ML Vial SUBCUT SCH ×3 (06:15→21:08)
[2021-10-20 07:16] LABS: ANION GAP 12.8 mEq/L (7-13)
[2021-10-20] MEDS: Terazosin 5 MG Cap PO SCH ×2 (08:42→21:07)
[2021-10-20] MEDS: Famotidine 20 MG Tab PO SCH (08:42)
[2021-10-20] MEDS: Cholecalciferol (Vitamin D3) 25 MCG Tab PO SCH (08:43)
[2021-10-20] MEDS: Acetaminophen 325 MG Tab PO PRN (08:43)
[2021-10-20] MEDS: Aspirin 81 MG Tab.EC PO SCH (08:43)
[2021-10-20] MEDS ORDERED: Non-Formulary Medication 1 Each (Cetirizine [Zyrtec] 10 MG Tablet) PO SCH (09:00)
[2021-10-20] MEDS ORDERED: DOXAZOSIN MESYLATE 4 MG PO SCH (09:00)
[2021-10-20] MEDS: Allopurinol 100 MG Tab PO SCH (16:43)
[2021-10-20] MEDS: cefTRIAXone 2 GM in Sodium Chloride 0.9% 100 ML IV SCH (21:06)
[2021-10-20] MEDS: Acetaminophen 500 MG Tab PO SCH (21:08)
[2021-10-21] MEDS: Heparin Sodium 5,000 Units/ML Vial SUBCUT SCH (05:54)
[2021-10-21 06:06] VITALS: PULSE 73
[2021-10-21 06:45] LABS: ANION GAP 12.8 mEq/L (7-13)
[2021-10-21] MEDS: Aspirin 81 MG Tab.EC PO SCH (08:07)
[2021-10-21] MEDS: Famotidine 20 MG Tab PO SCH (08:07)
[2021-10-21] MEDS: Cholecalciferol (Vitamin D3) 25 MCG Tab PO SCH (08:08)
[2021-10-21] MEDS: Terazosin 5 MG Cap PO SCH (08:08)
[2021-10-21 08:09] VITALS: BP 159/78
== END 2021-10-21 08:58 | disposition swing bed (61) | DRG 871 ==
LOC: DL.ED 20:52 → DL.MS 22:20
PROVIDERS: ADMIT Internal Medicine; ATTEND Internal Medicine
DX: A41.9 Sepsis, unspecified organism (principal); A41.51 Sepsis due to Escherichia coli [E. coli]; J18.9 Pneumonia, unspecified organism; N39.0 Urinary tract infection, site not specified; N17.9 Acute kidney failure, unspecified; N13.8 Other obstructive and reflux uropathy; E87.2 Acidosis; D64.9 Anemia, unspecified; Z20.822 Contact with and (suspected) exposure to COVID-19; N40.1 Benign prostatic hyperplasia with lower urinary tract symptoms; R33.8 Other retention of urine; N40.0 Benign prostatic hyperplasia without lower urinary tract symptoms; H54.7 Unspecified visual loss; H91.90 Unspecified hearing loss, unspecified ear; E78.00 Pure hypercholesterolemia, unspecified; I11.0 Hypertensive heart disease with heart failure; I50.9 Heart failure, unspecified; Z96.649 Presence of unspecified artificial hip joint; M10.9 Gout, unspecified; Z79.82 Long term (current) use of aspirin; Z79.899 Other long term (current) drug therapy; Z98.41 Cataract extraction status, right eye; Z98.42 Cataract extraction status, left eye; Z85.828 Personal history of other malignant neoplasm of skin
CPT/HCPCS: 0240U; 36415; 51702; 71045; 80048; 80053; 81001; 82728; 83540; 83550; 83605; 83690; 83735; 83880; 84153; 85025; 85027; 86140; 87040; 87077; 87086; 87088; 87186; 93005; 97116-GP; 97161-GP; 97165-GO; 97530-GO; 99285-25; A9270-GY; J0456; J0696; J1644; J1940; J2405; J3475; J7030; J7050

== ENCOUNTER 2021-10-21 08:58 | Inpatient (IN) | payer MEDICARE ==
[~2021-10-21 08:58] MED LIST: Calcium Carbonate 500 MG Tab.Chew PO PRN; Ondansetron 4 MG/2 ML SDV IVPUSH PRN
[2021-10-21] MEDS: Allopurinol 100 MG Tab PO SCH (17:34)
[2021-10-21] MEDS: Acetaminophen 500 MG Tab PO SCH (20:52)
[2021-10-21] MEDS: Terazosin 5 MG Cap PO SCH (20:53)
[2021-10-21] MEDS: cefTRIAXone 2 GM in Sodium Chloride 0.9% 100 ML IV SCH (21:07)
[2021-10-22] MEDS: Acetaminophen 325 MG Tab PO PRN (05:16)
[2021-10-22] MEDS: Famotidine 20 MG Tab PO SCH (08:08)
[2021-10-22] MEDS: Aspirin 81 MG Tab.EC PO SCH (08:08)
[2021-10-22] MEDS: Cholecalciferol (Vitamin D3) 25 MCG Tab PO SCH (08:08)
[2021-10-22] MEDS: Terazosin 5 MG Cap PO SCH ×2 (08:08→20:38)
[2021-10-22] MEDS ORDERED: Allopurinol 100 MG Tab PO SCH (17:30)
[2021-10-22] MEDS: Allopurinol 100 MG Tab PO SCH (17:33)
[2021-10-22] MEDS ORDERED: Polyvinyl Alcohol 1.4% Ophth Soln 15 ML Bottle EYEBOTH PRN (18:00)
[2021-10-22] MEDS: cefTRIAXone 2 GM in Sodium Chloride 0.9% 100 ML IV SCH (20:37)
[2021-10-22] MEDS: Acetaminophen 500 MG Tab PO SCH (20:39)
[2021-10-22] MEDS: Simvastatin 10 MG Tab PO SCH (20:39)
[2021-10-22] MEDS: Saccharomyces Boulardii (Probiotic) 250 MG Cap PO SCH (20:39)
[2021-10-22] MEDS ORDERED: Acetaminophen 500 MG Tab PO SCH (21:00)
[2021-10-22] MEDS ORDERED: Terazosin 5 MG Cap PO SCH (21:00)
[2021-10-23] MEDS: Saccharomyces Boulardii (Probiotic) 250 MG Cap PO SCH ×2 (08:19→20:50)
[2021-10-23] MEDS: Loratadine 10 MG Tab PO SCH (08:19)
[2021-10-23] MEDS: Cholecalciferol (Vitamin D3) 25 MCG Tab PO SCH (08:19)
[2021-10-23] MEDS: Potassium Chloride 10 MEQ Tab.ER PO SCH (08:20)
[2021-10-23] MEDS: Lisinopril 5 MG Tab PO SCH (08:20)
[2021-10-23] MEDS: Famotidine 20 MG Tab PO SCH (08:20)
[2021-10-23] MEDS: Terazosin 5 MG Cap PO SCH ×2 (08:20→20:50)
[2021-10-23] MEDS: Aspirin 81 MG Tab.EC PO SCH (08:21)
[2021-10-23] MEDS: Furosemide 40 MG Tab PO SCH (08:21)
[2021-10-23] MEDS ORDERED: Cholecalciferol (Vitamin D3) 25 MCG Tab PO SCH (09:00)
[2021-10-23] MEDS ORDERED: Aspirin 81 MG Tab.EC PO SCH (09:00)
[2021-10-23] MEDS ORDERED: Famotidine 20 MG Tab PO SCH (09:00)
[2021-10-23] MEDS: Allopurinol 100 MG Tab PO SCH (17:19)
[2021-10-23] MEDS: Simvastatin 10 MG Tab PO SCH (20:50)
[2021-10-23] MEDS: Acetaminophen 500 MG Tab PO SCH (20:50)
[2021-10-23] MEDS ORDERED: Sodium Chloride 0.9% 10 ML Syringe FLUSH PRN (20:53)
[2021-10-23] MEDS: cefTRIAXone 2 GM in Sodium Chloride 0.9% 100 ML IV SCH (20:54)
[2021-10-24] MEDS: Famotidine 20 MG Tab PO SCH (08:18)
[2021-10-24] MEDS: Loratadine 10 MG Tab PO SCH (08:18)
[2021-10-24] MEDS: Potassium Chloride 10 MEQ Tab.ER PO SCH (08:18)
[2021-10-24] MEDS: Aspirin 81 MG Tab.EC PO SCH (08:18)
[2021-10-24] MEDS: Lisinopril 5 MG Tab PO SCH (08:18)
[2021-10-24] MEDS: Furosemide 40 MG Tab PO SCH (08:19)
[2021-10-24] MEDS: Terazosin 5 MG Cap PO SCH ×2 (08:19→20:36)
[2021-10-24] MEDS: Cholecalciferol (Vitamin D3) 25 MCG Tab PO SCH (08:19)
[2021-10-24] MEDS: Saccharomyces Boulardii (Probiotic) 250 MG Cap PO SCH ×2 (08:19→20:52)
[2021-10-24] MEDS ORDERED: amLODIPine 5 MG Tab PO ONE ×2 (09:13→09:19)
[2021-10-24] MEDS: Allopurinol 100 MG Tab PO SCH (17:27)
[2021-10-24] MEDS: Acetaminophen 500 MG Tab PO SCH (20:35)
[2021-10-24] MEDS: Simvastatin 10 MG Tab PO SCH (20:36)
[2021-10-24] MEDS: cefTRIAXone 2 GM in Sodium Chloride 0.9% 100 ML IV SCH (20:36)
[2021-10-25] MEDS: Potassium Chloride 10 MEQ Tab.ER PO SCH (07:56)
[2021-10-25] MEDS: Furosemide 40 MG Tab PO SCH (08:00)
[2021-10-25] MEDS: Terazosin 5 MG Cap PO SCH ×2 (08:00→20:13)
[2021-10-25] MEDS: Loratadine 10 MG Tab PO SCH (08:00)
[2021-10-25] MEDS: Lisinopril 5 MG Tab PO SCH (08:00)
[2021-10-25] MEDS: Aspirin 81 MG Tab.EC PO SCH (08:00)
[2021-10-25] MEDS: Famotidine 20 MG Tab PO SCH (08:01)
[2021-10-25] MEDS: Cholecalciferol (Vitamin D3) 25 MCG Tab PO SCH (08:12)
[2021-10-25] MEDS ORDERED: amLODIPine 5 MG Tab PO ONE (08:32)
[2021-10-25] MEDS ORDERED: Lisinopril 20 MG Tab PO SCH (09:00)
[2021-10-25] MEDS ORDERED: amLODIPine 5 MG Tab PO SCH ×3 (09:00)
[2021-10-25] MEDS ORDERED: Lisinopril 10 MG Tab PO ONE (09:00)
[2021-10-25] MEDS: Allopurinol 100 MG Tab PO SCH (17:53)
[2021-10-25] MEDS: Acetaminophen 500 MG Tab PO SCH (20:13)
[2021-10-25] MEDS: Simvastatin 10 MG Tab PO SCH (20:13)
[2021-10-26] MEDS: Terazosin 5 MG Cap PO SCH ×2 (08:24→20:39)
[2021-10-26] MEDS: Furosemide 40 MG Tab PO SCH (08:25)
[2021-10-26] MEDS: amLODIPine 5 MG Tab PO SCH (08:25)
[2021-10-26] MEDS: Famotidine 20 MG Tab PO SCH (08:25)
[2021-10-26] MEDS: Lisinopril 20 MG Tab PO SCH (08:26)
[2021-10-26] MEDS: Potassium Chloride 10 MEQ Tab.ER PO SCH (08:26)
[2021-10-26] MEDS: Aspirin 81 MG Tab.EC PO SCH (08:26)
[2021-10-26] MEDS: Cholecalciferol (Vitamin D3) 25 MCG Tab PO SCH (08:26)
[2021-10-26] MEDS: Loratadine 10 MG Tab PO SCH (08:26)
[2021-10-26] MEDS: Allopurinol 100 MG Tab PO SCH (17:26)
[2021-10-26] MEDS: Simvastatin 10 MG Tab PO SCH (20:39)
[2021-10-26] MEDS: Acetaminophen 500 MG Tab PO SCH (20:39)
[2021-10-27] MEDS: Famotidine 20 MG Tab PO SCH (08:24)
[2021-10-27] MEDS: Lisinopril 20 MG Tab PO SCH (08:25)
[2021-10-27] MEDS: Furosemide 40 MG Tab PO SCH (08:25)
[2021-10-27] MEDS: Cholecalciferol (Vitamin D3) 25 MCG Tab PO SCH (08:25)
[2021-10-27] MEDS: Loratadine 10 MG Tab PO SCH (08:25)
[2021-10-27] MEDS: Terazosin 5 MG Cap PO SCH ×2 (08:25→20:16)
[2021-10-27] MEDS: Aspirin 81 MG Tab.EC PO SCH (08:26)
[2021-10-27] MEDS: amLODIPine 5 MG Tab PO SCH (08:26)
[2021-10-27] MEDS: Potassium Chloride 10 MEQ Tab.ER PO SCH (08:26)
[2021-10-27] MEDS: Allopurinol 100 MG Tab PO SCH (17:04)
[2021-10-27] MEDS: Acetaminophen 500 MG Tab PO SCH (20:15)
[2021-10-27] MEDS: Simvastatin 10 MG Tab PO SCH (20:16)
[2021-10-28] MEDS: Famotidine 20 MG Tab PO SCH (08:21)
[2021-10-28] MEDS: Furosemide 40 MG Tab PO SCH (08:21)
[2021-10-28] MEDS: Terazosin 5 MG Cap PO SCH ×2 (08:21→21:02)
[2021-10-28] MEDS: Cholecalciferol (Vitamin D3) 25 MCG Tab PO SCH (08:21)
[2021-10-28] MEDS: amLODIPine 5 MG Tab PO SCH (08:21)
[2021-10-28] MEDS: Potassium Chloride 10 MEQ Tab.ER PO SCH (08:21)
[2021-10-28] MEDS: Loratadine 10 MG Tab PO SCH (08:22)
[2021-10-28] MEDS: Aspirin 81 MG Tab.EC PO SCH (08:22)
[2021-10-28] MEDS: Lisinopril 20 MG Tab PO SCH (08:22)
[2021-10-28] MEDS: Allopurinol 100 MG Tab PO SCH (17:36)
[2021-10-28] MEDS: Simvastatin 10 MG Tab PO SCH (21:02)
[2021-10-28] MEDS: Acetaminophen 500 MG Tab PO SCH (21:02)
[2021-10-29] MEDS: Cholecalciferol (Vitamin D3) 25 MCG Tab PO SCH ×2 (07:26→10:25)
[2021-10-29] MEDS: Aspirin 81 MG Tab.EC PO SCH ×2 (07:27→10:23)
[2021-10-29] MEDS: Famotidine 20 MG Tab PO SCH ×2 (07:27→10:24)
[2021-10-29] MEDS: Potassium Chloride 10 MEQ Tab.ER PO SCH (07:27)
[2021-10-29] MEDS: Terazosin 5 MG Cap PO SCH ×3 (07:28→21:17)
[2021-10-29] MEDS: Loratadine 10 MG Tab PO SCH ×2 (07:29→10:23)
[2021-10-29] MEDS: Lisinopril 20 MG Tab PO SCH ×2 (07:29→10:24)
[2021-10-29] MEDS: Furosemide 40 MG Tab PO SCH ×2 (07:30→10:23)
[2021-10-29] MEDS: amLODIPine 5 MG Tab PO SCH ×2 (07:30→10:24)
[2021-10-29] MEDS: Allopurinol 100 MG Tab PO SCH (18:17)
[2021-10-29] MEDS: Simvastatin 10 MG Tab PO SCH (21:17)
[2021-10-29] MEDS: Acetaminophen 500 MG Tab PO SCH (21:18)
[2021-10-30] MEDS: Furosemide 40 MG Tab PO SCH (08:32)
[2021-10-30] MEDS: Famotidine 20 MG Tab PO SCH (08:32)
[2021-10-30] MEDS: Potassium Chloride 10 MEQ Tab.ER PO SCH (08:32)
[2021-10-30] MEDS: Lisinopril 20 MG Tab PO SCH (08:32)
[2021-10-30] MEDS: amLODIPine 5 MG Tab PO SCH (08:32)
[2021-10-30] MEDS: Terazosin 5 MG Cap PO SCH ×2 (08:33→20:14)
[2021-10-30] MEDS: Loratadine 10 MG Tab PO SCH (08:33)
[2021-10-30] MEDS: Aspirin 81 MG Tab.EC PO SCH (08:33)
[2021-10-30] MEDS: Cholecalciferol (Vitamin D3) 25 MCG Tab PO SCH (08:33)
[2021-10-30] MEDS: Allopurinol 100 MG Tab PO SCH (17:03)
[2021-10-30] MEDS: Acetaminophen 500 MG Tab PO SCH (20:15)
[2021-10-30] MEDS: Simvastatin 10 MG Tab PO SCH (20:15)
[2021-10-31] MEDS: Cholecalciferol (Vitamin D3) 25 MCG Tab PO SCH (09:00)
[2021-10-31] MEDS: Terazosin 5 MG Cap PO SCH ×2 (09:04→20:53)
[2021-10-31] MEDS: Famotidine 20 MG Tab PO SCH (09:05)
[2021-10-31] MEDS: Lisinopril 20 MG Tab PO SCH (09:05)
[2021-10-31] MEDS: amLODIPine 5 MG Tab PO SCH (09:06)
[2021-10-31] MEDS: Loratadine 10 MG Tab PO SCH (09:06)
[2021-10-31] MEDS: Furosemide 40 MG Tab PO SCH (09:06)
[2021-10-31] MEDS: Aspirin 81 MG Tab.EC PO SCH (09:07)
[2021-10-31] MEDS: Potassium Chloride 10 MEQ Tab.ER PO SCH (09:07)
[2021-10-31] MEDS: Acetaminophen 325 MG Tab PO PRN (09:12)
[2021-10-31] MEDS: Allopurinol 100 MG Tab PO SCH (17:15)
[2021-10-31] MEDS: Acetaminophen 500 MG Tab PO SCH (20:54)
[2021-10-31] MEDS: Simvastatin 10 MG Tab PO SCH (20:54)
[2021-11-01] MEDS: Aspirin 81 MG Tab.EC PO SCH (08:43)
[2021-11-01] MEDS: Loratadine 10 MG Tab PO SCH (08:43)
[2021-11-01] MEDS: Potassium Chloride 10 MEQ Tab.ER PO SCH (08:43)
[2021-11-01] MEDS: Furosemide 40 MG Tab PO SCH (08:44)
[2021-11-01] MEDS: Terazosin 5 MG Cap PO SCH ×2 (08:44→20:52)
[2021-11-01] MEDS: Famotidine 20 MG Tab PO SCH (08:45)
[2021-11-01] MEDS: Lisinopril 20 MG Tab PO SCH (08:45)
[2021-11-01] MEDS: amLODIPine 5 MG Tab PO SCH (08:45)
[2021-11-01] MEDS: Cholecalciferol (Vitamin D3) 25 MCG Tab PO SCH (08:46)
[2021-11-01] MEDS: Allopurinol 100 MG Tab PO SCH (17:22)
[2021-11-01] MEDS: Simvastatin 10 MG Tab PO SCH (20:50)
[2021-11-01] MEDS: Acetaminophen 500 MG Tab PO SCH (20:51)
[2021-11-02 08:28] VITALS: BP 126/68; PULSE 88
[2021-11-02] MEDS: Aspirin 81 MG Tab.EC PO SCH (08:39)
[2021-11-02] MEDS: Loratadine 10 MG Tab PO SCH (08:42)
[2021-11-02] MEDS: Famotidine 20 MG Tab PO SCH (08:42)
[2021-11-02] MEDS: Terazosin 5 MG Cap PO SCH (08:42)
[2021-11-02] MEDS: Furosemide 40 MG Tab PO SCH (08:42)
[2021-11-02] MEDS: Potassium Chloride 10 MEQ Tab.ER PO SCH (08:43)
[2021-11-02] MEDS: Cholecalciferol (Vitamin D3) 25 MCG Tab PO SCH (08:43)
[2021-11-02] MEDS: Lisinopril 20 MG Tab PO SCH (08:43)
[2021-11-02] MEDS: amLODIPine 5 MG Tab PO SCH (08:44)
== END 2021-11-02 14:18 | disposition home or self-care (01) | DRG 948 ==
LOC: DL.MS 08:58 → UNDOADMIN 09:15 → DL.MS 09:15
PROVIDERS: ADMIT Internal Medicine; ATTEND Internal Medicine
DX: R53.1 Weakness (principal); N13.8 Other obstructive and reflux uropathy; Z79.82 Long term (current) use of aspirin; Z79.899 Other long term (current) drug therapy; N40.1 Benign prostatic hyperplasia with lower urinary tract symptoms; I10 Essential (primary) hypertension; M10.9 Gout, unspecified; E78.5 Hyperlipidemia, unspecified; D64.9 Anemia, unspecified; R33.8 Other retention of urine; M62.81 Muscle weakness (generalized); Z96.0 Presence of urogenital implants; Z66 Do not resuscitate; H91.90 Unspecified hearing loss, unspecified ear; H54.7 Unspecified visual loss; Z98.41 Cataract extraction status, right eye; Z98.42 Cataract extraction status, left eye; E78.00 Pure hypercholesterolemia, unspecified; Z87.440 Personal history of urinary (tract) infections; Z85.828 Personal history of other malignant neoplasm of skin; Z90.89 Acquired absence of other organs; Z96.649 Presence of unspecified artificial hip joint; Z90.49 Acquired absence of other specified parts of digestive tract
CPT/HCPCS: 51798; 97110-GO; 97110-GP; 97116-GP; 97161-GP; 97165-GO; 97530-GO; 97535-GO; A9270-GY; J0696